=== PATIENT | female | born 1935 | race Caucasian/White ===

== ENCOUNTER 2019-08-01 15:45 | Emergency (ER) | payer MEDICARE, OTHER ==
[~2019-08-01] VITALS: Ht 157.5 cm; Wt 46.0 kg
[2019-08-01 16:29] LABS: BASOPHILS % (AUTO) 0.4 % (0-1); EOSINOPHILS # (AUTO) 0.4 X10'3 (0-0.9); EOSINOPHILS % (AUTO) 5.2 % (0-6); HEMATOCRIT 31.8 % (35.0-45.0); HEMOGLOBIN 11.1 g/dl (12.0-16.0); LYMPHOCYTES % (AUTO) 13.2 % (21-51); MEAN CORPUSCULAR HEMOGLOBIN 32.5 PG (27.0-31.0); MEAN CORPUSCULAR HGB CONC 34.9 g/dL (33.0-36.5); MEAN PLATELET VOLUME 7.2 FL (7.4-10.4); MONOCYTES # (AUTO) 0.8 X10'3 (0-0.9); MONOCYTES % (AUTO) 10.8 % (2-12); NEUTROPHILS # (AUTO) 5.5 X10'3 (1.8-7.7); NEUTROPHILS % (AUTO) 70.4 % (42-75); PLATELET COUNT 302 X10'3 (140-440); RED BLOOD COUNT 3.42 X10'6 (4.20-5.60); RED CELL DISTRIBUTION WIDTH 13.4 % (11.5-14.5); WHITE BLOOD COUNT 7.8 X10'3 (4.5-11.0)
[2019-08-01 16:56] LABS: ALANINE AMINOTRANSFERASE 21 U/L (12-78); ALBUMIN 3.2 G/DL (3.4-5.0); ALBUMIN/GLOBULIN RATIO 0.9 (1.1-1.5); ALKALINE PHOSPHATASE 39 IU/L (46-116); ANION GAP 5 (8-16); ASPARTATE AMINO TRANSFERASE 21 U/L (10-37); BILIRUBIN,TOTAL 0.3 MG/DL (0.1-1.0); BLOOD UREA NITROGEN 16 MG/DL (7-18); BUN/CREATININE RATIO 14.8 (6.6-38.0); CALCIUM 8.6 MG/DL (8.5-10.1); CHLORIDE 92 MMOL/L (99-107); CREATININE 1.08 MG/DL (0.40-0.90); GLUCOSE 103 MG/DL (70-104); POTASSIUM 4.7 MMOL/L (3.5-5.1); SODIUM 127 MMOL/L (135-145); TOTAL PROTEIN 6.8 G/DL (6.4-8.2); eGFR 49 ML/MIN
[2019-08-01] MEDS ORDERED: ipratropium/albuterol 3ml nebule NEB SCH (17:10)
[2019-08-01] MEDS ORDERED: ipratropium/albuterol 3ml nebule NEB ONE (17:10)
[2019-08-01] MEDS ORDERED: predniSONE 20 mg tablet PO ONE (17:10)
--- NOTE | 2019-08-01 17:11 | NUR ---
pt was visiting over in [place] on the Jul and not feeling good day she was leaving. had flu symptoms, sore throat, cough, sob and just not feeling well. denies abdomen or cp pain.
[2019-08-01] MEDS ORDERED: normal saline 1000ML IV soln IVB ONE (17:30)
[2019-08-01] MEDS ORDERED: ipratropium/albuterol 3ml nebule NEB PRN (17:30)
[2019-08-01 17:45] VITALS: BP 162/81
[2019-08-01] MEDS ORDERED: PRED20TA PO (18:26)
[2019-08-01] MEDS ORDERED: AZIT-63 PO (18:26)
== END 2019-08-01 18:36 | disposition home or self-care (01) ==
LOC: ER 15:46
DX: J44.1 Chronic obstructive pulmonary disease with (acute) exacerbation (principal); E87.1 Hypo-osmolality and hyponatremia; R11.10 Vomiting, unspecified; E78.00 Pure hypercholesterolemia, unspecified; J44.9 Chronic obstructive pulmonary disease, unspecified; Z90.49 Acquired absence of other specified parts of digestive tract; Z98.890 Other specified postprocedural states; Z87.891 Personal history of nicotine dependence; Z79.2 Long term (current) use of antibiotics; Z79.899 Other long term (current) drug therapy
CPT/HCPCS: 36415; 71046; 80053; 83605; 85025; 87040; 93005; 94640; 94760; 96360; 99284; J7030; J7512

== ENCOUNTER 2019-09-14 12:37 | Emergency (ER) | payer MEDICARE, OTHER ==
[~2019-09-14] VITALS: Ht 157.5 cm; Wt 46.0 kg
[2019-09-14 13:37] LABS: BASOPHILS % (AUTO) 0.7 % (0-1); EOSINOPHILS # (AUTO) 0.2 X10'3 (0-0.9); EOSINOPHILS % (AUTO) 4.2 % (0-6); HEMATOCRIT 30.5 % (35.0-45.0); HEMOGLOBIN 10.5 g/dl (12.0-16.0); LYMPHOCYTES # (AUTO) 0.9 X10'3 (1.1-4.8); LYMPHOCYTES % (AUTO) 20.5 % (21-51); MEAN CORPUSCULAR HGB CONC 34.5 g/dL (33.0-36.5); MEAN CORPUSCULAR VOLUME 95.8 FL (78-98); MEAN PLATELET VOLUME 6.4 FL (7.4-10.4); MONOCYTES # (AUTO) 0.3 X10'3 (0-0.9); MONOCYTES % (AUTO) 6.9 % (2-12); NEUTROPHILS # (AUTO) 2.9 X10'3 (1.8-7.7); NEUTROPHILS % (AUTO) 67.7 % (42-75); PLATELET COUNT 247 X10'3 (140-440); RED BLOOD COUNT 3.18 X10'6 (4.20-5.60); RED CELL DISTRIBUTION WIDTH 14.9 % (11.5-14.5); WHITE BLOOD COUNT 4.3 X10'3 (4.5-11.0)
[2019-09-14 13:48] LABS: ALANINE AMINOTRANSFERASE 41 U/L (12-78); ALBUMIN 3.4 G/DL (3.4-5.0); ALBUMIN/GLOBULIN RATIO 1.1 (1.1-1.5); ALKALINE PHOSPHATASE 34 IU/L (46-116); ANION GAP 7 (8-16); ASPARTATE AMINO TRANSFERASE 32 U/L (10-37); BILIRUBIN,TOTAL 0.5 MG/DL (0.1-1.0); BLOOD UREA NITROGEN 19 MG/DL (7-18); CALCIUM 8.7 MG/DL (8.5-10.1); CHLORIDE 96 MMOL/L (99-107); CREATININE 1.12 MG/DL (0.40-0.90); GLUCOSE 93 MG/DL (70-104); POTASSIUM 4.5 MMOL/L (3.5-5.1); SODIUM 129 MMOL/L (135-145); TOTAL CARBON DIOXIDE 26.3 MMOL/L (24-32); TOTAL PROTEIN 6.5 G/DL (6.4-8.2); eGFR 47 ML/MIN
[2019-09-14] MEDS ORDERED: labetalol 100mg tablet PO STA (16:26)
[2019-09-14 16:42] VITALS: BP 171/104
== END 2019-09-14 17:43 | disposition home or self-care (01) ==
LOC: ER 12:37
DX: R25.1 Tremor, unspecified (principal); R42 Dizziness and giddiness; R05 Cough; E78.00 Pure hypercholesterolemia, unspecified; J44.9 Chronic obstructive pulmonary disease, unspecified; Z90.49 Acquired absence of other specified parts of digestive tract; Z98.890 Other specified postprocedural states
CPT/HCPCS: 36415; 71046; 80053; 84484; 85025; 85610; 93005; 99284

== ENCOUNTER 2019-10-16 07:19 | Emergency (ER) | payer MEDICARE, OTHER ==
[~2019-10-16] VITALS: Ht 157.5 cm; Wt 46.0 kg
[2019-10-16] MEDS ORDERED: normal saline 1000ML IV soln IVB ONE (08:10)
[2019-10-16] MEDS ORDERED: ipratropium/albuterol 3ml nebule NEB ONE (08:10)
[2019-10-16] MEDS ORDERED: methylPREDNISolone sod succ 125mg/2ml vial IV ONE (08:10)
[2019-10-16 08:25] LABS: BASOPHILS % (AUTO) 0.1 % (0-1); EOSINOPHILS # (AUTO) 0.1 X10'3 (0-0.9); EOSINOPHILS % (AUTO) 1.4 % (0-6); HEMOGLOBIN 9.3 g/dl (12.0-16.0); LYMPHOCYTES % (AUTO) 16.9 % (21-51); MEAN CORPUSCULAR HEMOGLOBIN 34.7 PG (27.0-31.0); MEAN CORPUSCULAR HGB CONC 34.5 g/dL (33.0-36.5); MEAN CORPUSCULAR VOLUME 100.7 FL (78-98); MEAN PLATELET VOLUME 6.8 FL (7.4-10.4); MONOCYTES # (AUTO) 0.8 X10'3 (0-0.9); NEUTROPHILS # (AUTO) 3.9 X10'3 (1.8-7.7); NEUTROPHILS % (AUTO) 67.6 % (42-75); PLATELET COUNT 230 X10'3 (140-440); RED BLOOD COUNT 2.68 X10'6 (4.20-5.60); RED CELL DISTRIBUTION WIDTH 21.4 % (11.5-14.5); WHITE BLOOD COUNT 5.7 X10'3 (4.5-11.0)
[2019-10-16 08:40] LABS: ALANINE AMINOTRANSFERASE 92 U/L (12-78); ALBUMIN/GLOBULIN RATIO 1.1 (1.1-1.5); ALKALINE PHOSPHATASE 24 IU/L (46-116); ANION GAP 4 (8-16); ASPARTATE AMINO TRANSFERASE 39 U/L (10-37); BILIRUBIN,TOTAL 0.4 MG/DL (0.1-1.0); BLOOD UREA NITROGEN 20 MG/DL (7-18); BUN/CREATININE RATIO 15.6 (6.6-38.0); CALCIUM 8.9 MG/DL (8.5-10.1); CHLORIDE 96 MMOL/L (99-107); CREATININE 1.28 MG/DL (0.40-0.90); GLUCOSE 101 MG/DL (70-104); POTASSIUM 4.6 MMOL/L (3.5-5.1); SODIUM 131 MMOL/L (135-145); TOTAL CARBON DIOXIDE 31.3 MMOL/L (24-32); TOTAL PROTEIN 5.8 G/DL (6.4-8.2); eGFR 40 ML/MIN
[2019-10-16 08:48] LABS: ANISOCYTOSIS 3+; PLATELET ESTIMATE NORMAL; SCHISTOCYTES FEW
--- NOTE | 2019-10-16 08:50 | NUR ---
TROAT SWAB COLLECTED
[2019-10-16] MEDS ORDERED: LIDO20SO16 PO (09:21)
[2019-10-16] MEDS ORDERED: CEPH250T PO (09:21)
[2019-10-16] MEDS ORDERED: PRED20TA PO (09:21)
[2019-10-16] MEDS ORDERED: GUAI120015 PO (09:21)
[2019-10-16 10:09] VITALS: BP 114/61
== END 2019-10-16 10:11 | disposition home or self-care (01) ==
LOC: ER 07:20
DX: J44.1 Chronic obstructive pulmonary disease with (acute) exacerbation (principal); J40 Bronchitis, not specified as acute or chronic; E86.0 Dehydration; E78.00 Pure hypercholesterolemia, unspecified; Z90.49 Acquired absence of other specified parts of digestive tract; Z98.890 Other specified postprocedural states; Z87.891 Personal history of nicotine dependence
CPT/HCPCS: 36415; 71045; 80053; 83880; 84484; 85025; 87081; 87880; 93005; 94640; 96361; 96374; 99284; J2930; J7030

== ENCOUNTER 2020-03-05 10:52 | Inpatient (IN) | payer MEDICARE, OTHER ==
[~2020-03-05] VITALS: Ht 157.5 cm; Wt 45.0 kg
[~2020-03-05 10:52] MED LIST: GUAI120015 PO; LIDO20SO16 PO
[2020-03-05] MEDS ORDERED: CefTRIAXone 2gm/D5W 50ml 50 ML IV ONE (11:10)
[2020-03-05] MEDS ORDERED: normal saline 1000ML IV soln IVB ONE (11:15)
[2020-03-05 11:31] LABS: HEMOGLOBIN 10.3 g/dl (12.0-16.0); LYMPHOCYTES # (AUTO) 0.5 X10'3 (1.1-4.8); LYMPHOCYTES % (AUTO) 1.8 % (21-51); MEAN CORPUSCULAR HGB CONC 33.3 g/dL (33.0-36.5); MEAN PLATELET VOLUME 8.7 FL (7.4-10.4); RED CELL DISTRIBUTION WIDTH 19.9 % (11.5-14.5)
[2020-03-05 11:33] LABS: BASOPHILS # (AUTO) 0.1 X10'3 (0-0.2); BASOPHILS % (AUTO) 0.2 % (0-1); EOSINOPHILS % (AUTO) 0.1 % (0-6); HEMATOCRIT 30.9 % (35.0-45.0); MEAN CORPUSCULAR HEMOGLOBIN 38.3 PG (27.0-31.0); MEAN CORPUSCULAR VOLUME 115.2 FL (78-98); MONOCYTES # (AUTO) 1.7 X10'3 (0-0.9); MONOCYTES % (AUTO) 5.6 % (2-12); NEUTROPHILS # (AUTO) 27.7 X10'3 (1.8-7.7); NEUTROPHILS % (AUTO) 92.3 % (42-75); PLATELET COUNT 541 X10'3 (140-440); RED BLOOD COUNT 2.68 X10'6 (4.20-5.60)
[2020-03-05] MEDS ORDERED: amiodarone 50MG/ML inj IV ONE (11:40)
[2020-03-05 11:43] LABS: PARTIAL THROMBOPLASTIN TIME 27 SECONDS (22-32)
[2020-03-05] MEDS ORDERED: amiodarone 150mg/dext, iso-os 100 ML IV ONE (11:45)
[2020-03-05 11:47] LABS: TOTAL CELLS COUNTED 100
[2020-03-05 11:48] LABS: ANISOCYTOSIS 2+; PLATELET ESTIMATE INCREASED; TOXIC GRANULATION 2+
[2020-03-05 11:49] LABS: ALANINE AMINOTRANSFERASE 24 U/L (12-78); ALBUMIN 2.1 G/DL (3.4-5.0); ALBUMIN/GLOBULIN RATIO 0.6 (1.1-1.5); ALKALINE PHOSPHATASE 55 IU/L (46-116); ANION GAP 10 (8-16); ASPARTATE AMINO TRANSFERASE 22 U/L (10-37); BILIRUBIN,TOTAL 0.3 MG/DL (0.1-1.0); BLOOD UREA NITROGEN 88 MG/DL (7-18); BUN/CREATININE RATIO 38.3 (6.6-38.0); CALCIUM 7.7 MG/DL (8.5-10.1); CHLORIDE 101 MMOL/L (99-107); GLUCOSE 136 MG/DL (70-104); LARGE PLATELETS FEW; POTASSIUM 4.6 MMOL/L (3.5-5.1); SODIUM 130 MMOL/L (135-145); TOTAL CARBON DIOXIDE 19.4 MMOL/L (24-32); TOTAL PROTEIN 5.4 G/DL (6.4-8.2); eGFR 20 ML/MIN
[2020-03-05 11:55] LABS: MAGNESIUM 2.3 MG/DL (1.5-2.4)
[2020-03-05 12:04] LABS: CLARITY,URINE CLEAR (Clear); COLOR,URINE YELLOW (Yellow); GLUCOSE, URINE NEGATIVE (Neg); KETONES,URINE NEGATIVE (Neg); LEUKOCYTE ESTERASE ,URINE NEGATIVE (Neg); NITRITES, URINE NEGATIVE (Neg); OCCULT BLOOD,URINE NEGATIVE (Neg); PH,URINE 5.5 (4.8-8.0); PROTEIN,URINE NEGATIVE (Neg); UROBILINOGEN,URINE 0.2 E.U/dL (0.2-1.0)
[2020-03-05 12:05] LABS: UA COLLECTION TYPE CLN CATCH MIDSTREAM
[2020-03-05 12:07] LABS: C-REACTIVE PROTEIN 15.32 MG/DL (0.0-0.5); LACTATE DEHYDROGENASE 335 U/L (81-234)
[2020-03-05 12:10] LABS: D-DIMER 5.93 MG/L FEU (0-0.50)
[2020-03-05] MEDS: amiodarone/D5 360MG/200ML BAG 200 ML IV SCH ×3 (12:11→23:48)
[2020-03-05] MEDS ORDERED: HYDR-3964 PO (12:56)
[2020-03-05] MEDS ORDERED: LIDO20SO24 PO (12:56)
[2020-03-05] MEDS ORDERED: PRED10TA PO (12:56)
[2020-03-05] MEDS ORDERED: ATOR10TA70 PO (12:56)
[2020-03-05] MEDS ORDERED: LOSA50TA64 PO (13:01)
[2020-03-05] MEDS ORDERED: TRAZ-251 PO (13:01)
[2020-03-05] MEDS ORDERED: LISI-600 PO (13:01)
[2020-03-05] MEDS ORDERED: FOLIC ACID 1MG PO (13:01)
[2020-03-05] MEDS ORDERED: HYDR200T84 PO (13:01)
[2020-03-05] MEDS ORDERED: METH2.5T55 PO (13:01)
[2020-03-05] MEDS ORDERED: morphine 2 MG/ML inj. syringe IV PRN (13:05)
[2020-03-05] MEDS ORDERED: potassium CL 10mEq/100ml bag 100 ML IV PRN ×2 (13:05)
[2020-03-05] MEDS ORDERED: ondansetron/PF 4mg/2ml inj IV PRN (13:05)
[2020-03-05] MEDS ORDERED: potassium Cl 20 mEq SR tablet PO PRN ×2 (13:05)
[2020-03-05] MEDS ORDERED: magnesium 2GM in 50ml NS 50 ML IV PRN (13:05)
[2020-03-05] MEDS ORDERED: magnesium Cl slow-release 64mg tablet PO PRN (13:05)
[2020-03-05] MEDS ORDERED: acetaminophen 325mg tablet PO PRN (13:05)
[2020-03-05] MEDS ORDERED: magnesium 4gm in 100ml NS 100 ML IV PRN (13:05)
[2020-03-05] MEDS ORDERED: azithromycin/NS 500mg/250ml 250 ML IV ONE (13:10)
[2020-03-05] MEDS ORDERED: ipratropium/albuterol 3ml nebule NEB PRN (14:10)
--- NOTE | 2020-03-05 14:10 | NUR ---
Patient admitted to PCU 3465P. Patient transferred from ED [facility] to bed. Oriented to room and call light use, explained to patient multiple times she is in a hospital. Patient is able to answer name and but does not know why she is here, where she is, or the month or date. Attempted to explain to patient plan of care and illness, as well as reinforce she is in hospital. Amiodarone gtt infusing at 33mL/hr. Patient placed on bedside monitor. VS taken at this time. Will continue to monitor.
[2020-03-05 15:00] VITALS: BP 103/46
[2020-03-05] MEDS: ipratropium/albuterol 3ml nebule NEB SCH ×3 (15:05→22:59)
[2020-03-05] MEDS: normal saline 1000ml 1,000 ML IV SCH (15:07)
[2020-03-05] MEDS: CefTRIAXone/D5W-Rocephin 1gm 50 ML IV SCH (15:08)
--- NOTE | 2020-03-05 17:20 | NUR ---
Patient c/o left sided chest pain, is grabbing at the left lateral chest wall. She states that this pain "started when I got here". STAT EKG obtained at this time and read No STEMI by ED MD. VS stable at this time. Hospitalist paged on EKG and chest pain. Will continue to monitor.
--- NOTE | 2020-03-05 17:21 | NUR ---
PAGER ID: [phone] MESSAGE: Alycia sr [phone]. RE Chrissie Nogueira [id number]. Pt having CP, obtaining STAT EKG. Can I run it to you to review? Thanks!
[2020-03-05 18:00] VITALS: BP 102/46
--- NOTE | 2020-03-05 18:00 | NUR ---
Patient in room PCU 3017. I have received report from Alycia MATTHEWS and had the opportunity to ask questions and assume patient care.
--- NOTE | 2020-03-05 18:28 | NUR ---
Problems reprioritized. Patient report given, questions answered & plan of care reviewed with Jessica MATTHEWS.
[2020-03-05 20:00] VITALS: BP_SYST 107; BP_SYST 115; BP_DIAS 38; BP_DIAS 43
[2020-03-05] MEDS: K and/or MAG REPLACEMENT MC SCH (20:00)
[2020-03-05] MEDS: methylPREDNISolone sod succ/PF 40mg inj. IV SCH (20:27)
[2020-03-05 22:00] VITALS: BP 107/38
[2020-03-06] VITALS (13 sets, daily range): BP systolic 95–133; BP diastolic 42–103
[2020-03-06] MEDS: ipratropium/albuterol 3ml nebule NEB SCH ×6 (02:51→23:17)
[2020-03-06] MEDS: amiodarone/D5 360MG/200ML BAG 200 ML IV SCH ×3 (05:37→16:39)
[2020-03-06 06:15] LABS: EOSINOPHILS % (AUTO) 0 % (0-6); HEMOGLOBIN 8.5 g/dl (12.0-16.0); LYMPHOCYTES # (AUTO) 0.4 X10'3 (1.1-4.8); LYMPHOCYTES % (AUTO) 1.2 % (21-51); MONOCYTES # (AUTO) 0.6 X10'3 (0-0.9); MONOCYTES % (AUTO) 1.9 % (2-12)
[2020-03-06 06:18] LABS: BASOPHILS # (AUTO) 0.1 X10'3 (0-0.2); BASOPHILS % (AUTO) 0.2 % (0-1); MEAN CORPUSCULAR HEMOGLOBIN 39.4 PG (27.0-31.0); MEAN CORPUSCULAR HGB CONC 34.1 g/dL (33.0-36.5); MEAN CORPUSCULAR VOLUME 115.5 FL (78-98); MEAN PLATELET VOLUME 8.8 FL (7.4-10.4); NEUTROPHILS # (AUTO) 32.9 X10'3 (1.8-7.7); NEUTROPHILS % (AUTO) 96.7 % (42-75); PLATELET COUNT 427 X10'3 (140-440); RED BLOOD COUNT 2.17 X10'6 (4.20-5.60); RED CELL DISTRIBUTION WIDTH 20.3 % (11.5-14.5)
--- NOTE | 2020-03-06 06:29 | NUR ---
PAGER ID: [phone] MESSAGE: [phone] Lani Nogueira: Critical WBC 34. would you like to order anything? Jessica MATTHEWS [phone]
[2020-03-06 06:31] LABS: ALBUMIN 1.6 G/DL (3.4-5.0); ANION GAP 10 (8-16); BLOOD UREA NITROGEN 63 MG/DL (7-18); CALCIUM 7.2 MG/DL (8.5-10.1); CHLORIDE 107 MMOL/L (99-107); GLUCOSE 223 MG/DL (70-104); MAGNESIUM 2.5 MG/DL (1.5-2.4); POTASSIUM 4.5 MMOL/L (3.5-5.1); SODIUM 134 MMOL/L (135-145); TOTAL CARBON DIOXIDE 16.7 MMOL/L (24-32); eGFR 27 ML/MIN
--- NOTE | 2020-03-06 06:36 | NUR ---
Problems reprioritized. Patient report given, questions answered & plan of care reviewed with Alycia MATTHEWS.
--- NOTE | 2020-03-06 06:49 | NUR ---
Patient in room PCU 3014G. I have received report from Jessica MATTHEWS and had the opportunity to ask questions and assume patient care.
[2020-03-06 06:55] LABS: ANISOCYTOSIS 3+; BURR CELLS 1+; PLATELET ESTIMATE NORMAL; POLYCHROMASIA 1+; TOTAL CELLS COUNTED 100; TOXIC GRANULATION 3+
[2020-03-06] MEDS: aspirin 325mg tablet PO SCH (07:50)
[2020-03-06] MEDS: methylPREDNISolone sod succ/PF 40mg inj. IV SCH ×2 (07:51→19:09)
[2020-03-06] MEDS: CefTRIAXone/D5W-Rocephin 1gm 50 ML IV SCH (07:54)
[2020-03-06] MEDS: K and/or MAG REPLACEMENT MC SCH ×2 (08:00→20:00)
--- NOTE | 2020-03-06 09:00 | NUR ---
Patient converted into afib rate 100-120's.
[2020-03-06] MEDS: azithromycin/NS 500mg/250ml 250 ML IV SCH (09:07)
--- NOTE | 2020-03-06 10:38 | NUR ---
Pt with a low BMI for geriatric age. Current documented wt is pt stated however is stable with documented wt hx of 46 kg taken 10/16/19 with chair scale. Pt confused, A/O x1, and a poor historian with hx dementia. Pt edentulous per admission assessment. Pt would benefit from BSS with ST, recommendation placed. Pt documented with 25% PO intake at dinner yesterday on heart healthy diet, pureed was just added to diet order this morning. Pt with no documented significant decrease in muscle strength or edema. Skin is intact. Will continue to follow closely and monitor need for appropriate nutrition intervention pending BSS. Addendum: 03/06/20 at [address] Amended: Links added.
[2020-03-06] MEDS: normal saline 1000ml 1,000 ML IV SCH (10:42)
--- NOTE | 2020-03-06 10:53 | NUR ---
PAGER ID: [phone] MESSAGE: Alycia sr [phone]. RE Chrissie Nogueira [id number]. Can I order PT eval for patient? Also need orders for O2, requiring 2L to maintain sats. Thanks!
--- NOTE | 2020-03-06 11:02 | NUR ---
PAGER ID: [phone] MESSAGE: Alycia sr [phone]. RE Chrissie GAN [phone]. Pt has positive blood culture: gram negative rods, right arm, aerobic bottle. On Rocephin and Zithromax IV. Thanks!
--- NOTE | 2020-03-06 15:30 | NUR ---
Patient converted into sinus rhythm, rate in the 's. Notified by [employer] at 1600 that patient had converted and has sustained SR since 1529.
--- NOTE | 2020-03-06 18:00 | NUR ---
Patient in room PCU 3017. I have received report from Alycia MATTHEWS and had the opportunity to ask questions and assume patient care.
--- NOTE | 2020-03-06 18:06 | NUR ---
Problems reprioritized. Patient report given, questions answered & plan of care reviewed with Jessica MATTHEWS.
[2020-03-06] MEDS: lactobacillus rhamnosus 10,000 MMU CELLS/CAPSULE PO SCH (20:03)
[2020-03-07] VITALS (14 sets, daily range): BP systolic 102–157; BP diastolic 39–89
[2020-03-07] MEDS: amiodarone/D5 360MG/200ML BAG 200 ML IV SCH ×2 (00:04→06:08)
[2020-03-07] MEDS: ipratropium/albuterol 3ml nebule NEB SCH ×6 (04:10→23:32)
[2020-03-07 06:18] LABS: BASOPHILS # (AUTO) 0.1 X10'3 (0-0.2); HEMOGLOBIN 7.7 g/dl (12.0-16.0)
[2020-03-07 06:23] LABS: BASOPHILS % (AUTO) 0.4 % (0-1); EOSINOPHILS % (AUTO) 0 % (0-6); HEMATOCRIT 23.5 % (35.0-45.0); LYMPHOCYTES # (AUTO) 0.4 X10'3 (1.1-4.8); MEAN CORPUSCULAR HEMOGLOBIN 37.3 PG (27.0-31.0); MEAN CORPUSCULAR HGB CONC 32.8 g/dL (33.0-36.5); MEAN CORPUSCULAR VOLUME 113.9 FL (78-98); MEAN PLATELET VOLUME 8.8 FL (7.4-10.4); MONOCYTES % (AUTO) 2.3 % (2-12); NEUTROPHILS # (AUTO) 39.6 X10'3 (1.8-7.7); NEUTROPHILS % (AUTO) 96.3 % (42-75); PLATELET COUNT 421 X10'3 (140-440); RED BLOOD COUNT 2.07 X10'6 (4.20-5.60); RED CELL DISTRIBUTION WIDTH 20.2 % (11.5-14.5)
--- NOTE | 2020-03-07 06:29 | NUR ---
Problems reprioritized. Patient report given, questions answered & plan of care reviewed with Randi MATTHEWS.
--- NOTE | 2020-03-07 06:35 | NUR ---
Patient in room PCU 3017. I have received report from CASSIE Roland and had the opportunity to ask questions and assume patient care.
[2020-03-07 06:36] LABS: ALBUMIN 1.5 G/DL (3.4-5.0); ANION GAP 11 (8-16); BLOOD UREA NITROGEN 50 MG/DL (7-18); BUN/CREATININE RATIO 33.8 (6.6-38.0); CHLORIDE 109 MMOL/L (99-107); CREATININE 1.48 MG/DL (0.40-0.90); GLUCOSE 194 MG/DL (70-104); MAGNESIUM 2.3 MG/DL (1.5-2.4); POTASSIUM 3.9 MMOL/L (3.5-5.1); SODIUM 138 MMOL/L (135-145); TOTAL CARBON DIOXIDE 17.8 MMOL/L (24-32); eGFR 34 ML/MIN
[2020-03-07 06:38] LABS: WHITE BLOOD COUNT 41.1 X10'3 (4.5-11.0)
--- NOTE | 2020-03-07 06:44 | NUR ---
Paged Wisam PAGER ID: [phone] MESSAGE: [id number]: Critical WBC of 41.1, up from 34.0 yesterday -Randi [phone]
[2020-03-07 06:47] LABS: CALCIUM 7.4 MG/DL (8.5-10.1)
[2020-03-07 07:29] LABS: ANISOCYTOSIS 3+; HYPOCHROMASIA 1+; PLATELET ESTIMATE NORMAL; POLYCHROMASIA FEW; TOTAL CELLS COUNTED 100; TOXIC GRANULATION 3+
[2020-03-07] MEDS: aspirin 325mg tablet PO SCH (07:58)
[2020-03-07] MEDS: lactobacillus rhamnosus 10,000 MMU CELLS/CAPSULE PO SCH ×2 (07:58→19:13)
[2020-03-07] MEDS: methylPREDNISolone sod succ/PF 40mg inj. IV SCH ×2 (07:58→19:13)
[2020-03-07] MEDS: CefTRIAXone/D5W-Rocephin 1gm 50 ML IV SCH (08:00)
[2020-03-07] MEDS: K and/or MAG REPLACEMENT MC SCH ×2 (08:00→20:00)
[2020-03-07] MEDS: azithromycin/NS 500mg/250ml 250 ML IV SCH (08:35)
[2020-03-07] MEDS ORDERED: diltiazem 30mg tablet PO ONE (09:45)
[2020-03-07] MEDS: normal saline 1000ml 1,000 ML IV SCH ×2 (09:45→22:08)
--- NOTE | 2020-03-07 13:45 | NUR ---
New orders from Nepo to discontinue amio gtt.
[2020-03-07] MEDS ORDERED: iohexol 350MG/ML 100ml bottle IV ONE (14:16)
[2020-03-07] MEDS: acetylcysteine 200 MG/ml 4ml vial PO SCH ×2 (14:51→19:14)
[2020-03-07] MEDS: diltiazem 30mg tablet PO SCH ×2 (14:51→19:13)
--- NOTE | 2020-03-07 18:00 | NUR ---
Patient in room PCU 3017. I have received report from Randi MATTHEWS and had the opportunity to ask questions and assume patient care.
--- NOTE | 2020-03-07 18:01 | NUR ---
Problems reprioritized. Patient report given, questions answered & plan of care reviewed with CASSIE Roland.
[2020-03-07 21:54] LABS: HEMATOCRIT 24.7 % (35.0-45.0); HEMOGLOBIN 8.1 g/dl (12.0-16.0); MEAN CORPUSCULAR HEMOGLOBIN 37.6 PG (27.0-31.0); MEAN CORPUSCULAR HGB CONC 32.7 g/dL (33.0-36.5); MEAN CORPUSCULAR VOLUME 114.9 FL (78-98); MEAN PLATELET VOLUME 8.7 FL (7.4-10.4); PLATELET COUNT 425 X10'3 (140-440); RED BLOOD COUNT 2.14 X10'6 (4.20-5.60); RED CELL DISTRIBUTION WIDTH 20.1 % (11.5-14.5)
[2020-03-07 21:58] LABS: WHITE BLOOD COUNT 38.5 X10'3 (4.5-11.0)
[2020-03-08] MEDS: diltiazem 30mg tablet PO SCH ×4 (01:30→19:18)
[2020-03-08] MEDS: ipratropium/albuterol 3ml nebule NEB SCH ×6 (02:58→23:29)
[2020-03-08 06:07] LABS: HEMATOCRIT 24.7 % (35.0-45.0); MEAN PLATELET VOLUME 8.8 FL (7.4-10.4); RED BLOOD COUNT 2.16 X10'6 (4.20-5.60); RED CELL DISTRIBUTION WIDTH 20.4 % (11.5-14.5)
[2020-03-08 06:10] LABS: BASOPHILS % (AUTO) 0 % (0-1); EOSINOPHILS # (AUTO) 0.5 X10'3 (0-0.9); EOSINOPHILS % (AUTO) 1.3 % (0-6); HEMOGLOBIN 8.2 g/dl (12.0-16.0); LYMPHOCYTES # (AUTO) 0.5 X10'3 (1.1-4.8); LYMPHOCYTES % (AUTO) 1.5 % (21-51); MEAN CORPUSCULAR HEMOGLOBIN 37.8 PG (27.0-31.0); MEAN CORPUSCULAR HGB CONC 33.1 g/dL (33.0-36.5); MEAN CORPUSCULAR VOLUME 114.3 FL (78-98); MONOCYTES # (AUTO) 0.5 X10'3 (0-0.9); MONOCYTES % (AUTO) 1.3 % (2-12); NEUTROPHILS # (AUTO) 34.1 X10'3 (1.8-7.7); NEUTROPHILS % (AUTO) 95.9 % (42-75); PLATELET COUNT 404 X10'3 (140-440)
[2020-03-08 06:19] LABS: ALBUMIN 1.5 G/DL (3.4-5.0); ANION GAP 9 (8-16); BLOOD UREA NITROGEN 41 MG/DL (7-18); BUN/CREATININE RATIO 30.1 (6.6-38.0); CALCIUM 7.1 MG/DL (8.5-10.1); CHLORIDE 109 MMOL/L (99-107); CREATININE 1.36 MG/DL (0.40-0.90); GLUCOSE 154 MG/DL (70-104); MAGNESIUM 2.1 MG/DL (1.5-2.4); POTASSIUM 4.1 MMOL/L (3.5-5.1); SODIUM 137 MMOL/L (135-145); TOTAL CARBON DIOXIDE 18.7 MMOL/L (24-32); eGFR 37 ML/MIN
[2020-03-08 06:21] LABS: WHITE BLOOD COUNT 35.6 X10'3 (4.5-11.0)
--- NOTE | 2020-03-08 06:31 | NUR ---
Problems reprioritized. Patient report given, questions answered & plan of care reviewed with Ashleigh MATTHEWS.
--- NOTE | 2020-03-08 06:32 | NUR ---
Patient in room PCU 3017. I have received report from Jessica MATTHEWS and had the opportunity to ask questions and assume patient care.
--- NOTE | 2020-03-08 06:45 | NUR ---
Patient in room PCU 3017. I have received report from Jessica MATTHEWS and had the opportunity to ask questions and assume patient care with Ashleigh MATTHEWS.
[2020-03-08 07:00] VITALS: BP 128/44
[2020-03-08] MEDS: lactobacillus rhamnosus 10,000 MMU CELLS/CAPSULE PO SCH ×2 (07:41→19:18)
[2020-03-08] MEDS: aspirin 325mg tablet PO SCH (07:41)
[2020-03-08] MEDS: methylPREDNISolone sod succ/PF 40mg inj. IV SCH ×2 (07:42→19:18)
[2020-03-08] MEDS: azithromycin/NS 500mg/250ml 250 ML IV SCH (07:42)
[2020-03-08] MEDS: CefTRIAXone/D5W-Rocephin 1gm 50 ML IV SCH (07:42)
[2020-03-08 07:46] LABS: TOTAL CELLS COUNTED 100
[2020-03-08 07:50] LABS: LARGE PLATELETS FEW; PLATELET ESTIMATE NORMAL; POLYCHROMASIA FEW; TOXIC GRANULATION 1+; TOXIC VACUOLATION FEW
[2020-03-08 08:00] VITALS: BP_SYST 117; BP_SYST 132; BP_SYST 136; BP_DIAS 52; BP_DIAS 56; BP_DIAS 63
[2020-03-08] MEDS: K and/or MAG REPLACEMENT MC SCH ×2 (08:00→19:18)
--- NOTE | 2020-03-08 08:00 | NUR ---
MD made aware that the patient has been in and out of a-fib. confirmed with nursing that the patient is on PO Cardizem. No further orders.
[2020-03-08] MEDS: acetylcysteine 200 MG/ml 4ml vial PO SCH ×2 (08:01→19:18)
[2020-03-08 11:00] VITALS: BP 105/40
[2020-03-08] MEDS: normal saline 1000ml 1,000 ML IV SCH ×2 (11:28→16:47)
--- NOTE | 2020-03-08 14:35 | NUR ---
Initial: Pt admit w/ afib RVR, leukocytosis, hyperlipidemia, and forgetful AOX1 hx dementia. Pt PO 25-50% avg pureed/thin/heart healthy meals per CONSULTING PSYCHIATRIST recs r/t lack of teeth. LBM 03/04; RD d/w RN regarding routine bowel care per MD approval. Constipation in addition to ALOC likely impacting PO. Pt MCV 114.3 on admit; RD d/w RN regarding B12/folic supplementation per MD approval. No hx of etoh per EMR. Will continue to monitor for additional protein needs and PO hx. Rec: 1. continue pureed/thin/heart healthy meals per CONSULTING PSYCHIATRIST/MD; encourage PO 2. monitor for ONS needs 3. routine bowel care 4. scaled wt Addendum: 03/08/20 at [address] Amended: Links added.
[2020-03-08 15:00] VITALS: BP 136/57
--- NOTE | 2020-03-08 15:18 | NUR ---
PAGER ID: [phone] MESSAGE: Pt [id number] Lani Nogueira dietary recommending B12 & folic acid supp & bowel care .Lu MATTHEWS ext [phone]
[2020-03-08] MEDS ORDERED: docusate sod 100mg capsule PO PRN (15:25)
[2020-03-08] MEDS: magnesium hydroxide 30ml (MOM) UD suspension PO PRN (16:47)
[2020-03-08 18:00] VITALS: BP 126/50
--- NOTE | 2020-03-08 18:09 | NUR ---
Problems reprioritized. Patient report given, questions answered & plan of care reviewed with Jessica MATTHEWS and with my preceptor Ashleigh MATTHEWS.
[2020-03-08 23:00] VITALS: BP 130/59
[2020-03-09] MEDS: diltiazem 30mg tablet PO SCH ×4 (01:45→20:54)
[2020-03-09 02:00] VITALS: BP 133/54
[2020-03-09] MEDS: ipratropium/albuterol 3ml nebule NEB SCH ×6 (03:00→22:53)
[2020-03-09 05:34] LABS: ALBUMIN 1.7 G/DL (3.4-5.0); ANION GAP 10 (8-16); BLOOD UREA NITROGEN 35 MG/DL (7-18); BUN/CREATININE RATIO 22.9 (6.6-38.0); CALCIUM 7.5 MG/DL (8.5-10.1); CHLORIDE 108 MMOL/L (99-107); CREATININE 1.53 MG/DL (0.40-0.90); GLUCOSE 169 MG/DL (70-104); MAGNESIUM 1.9 MG/DL (1.5-2.4); POTASSIUM 4.3 MMOL/L (3.5-5.1); SODIUM 137 MMOL/L (135-145); eGFR 32 ML/MIN
[2020-03-09 06:00] LABS: BASOPHILS # (AUTO) 0.2 X10'3 (0-0.2); BASOPHILS % (AUTO) 0.4 % (0-1); EOSINOPHILS # (AUTO) 2.1 X10'3 (0-0.9); EOSINOPHILS % (AUTO) 5.3 % (0-6); HEMOGLOBIN 8.5 g/dl (12.0-16.0); LYMPHOCYTES # (AUTO) 0.6 X10'3 (1.1-4.8); LYMPHOCYTES % (AUTO) 1.5 % (21-51); MEAN CORPUSCULAR HEMOGLOBIN 37.8 PG (27.0-31.0); MEAN CORPUSCULAR HGB CONC 32.8 g/dL (33.0-36.5); MEAN CORPUSCULAR VOLUME 115.2 FL (78-98); MEAN PLATELET VOLUME 9.1 FL (7.4-10.4); MONOCYTES # (AUTO) 0.4 X10'3 (0-0.9); NEUTROPHILS # (AUTO) 35.5 X10'3 (1.8-7.7); NEUTROPHILS % (AUTO) 91.8 % (42-75); PLATELET COUNT 463 X10'3 (140-440); RED BLOOD COUNT 2.26 X10'6 (4.20-5.60); RED CELL DISTRIBUTION WIDTH 20.4 % (11.5-14.5)
[2020-03-09 06:05] LABS: WHITE BLOOD COUNT 38.7 X10'3 (4.5-11.0)
--- NOTE | 2020-03-09 06:30 | NUR ---
Problems reprioritized. Patient report given, questions answered & plan of care reviewed with Ashleigh MATTHEWS.
[2020-03-09 06:58] LABS: TOTAL CELLS COUNTED 100
[2020-03-09 06:59] LABS: ANISOCYTOSIS 3+; PLATELET ESTIMATE INCREASED
[2020-03-09 07:00] VITALS: BP 133/67
[2020-03-09 07:00] LABS: MICROCYTOSIS 1+
--- NOTE | 2020-03-09 07:17 | NUR ---
Patient in room PCU 3017. I have received report from Jessica MATTHEWS and had the opportunity to ask questions and assume patient care.
[2020-03-09] MEDS: K and/or MAG REPLACEMENT MC SCH ×2 (08:00→20:00)
[2020-03-09] MEDS: lactobacillus rhamnosus 10,000 MMU CELLS/CAPSULE PO SCH ×2 (08:48→20:55)
[2020-03-09] MEDS: CefTRIAXone/D5W-Rocephin 1gm 50 ML IV SCH (08:48)
[2020-03-09] MEDS: azithromycin/NS 500mg/250ml 250 ML IV SCH (08:48)
[2020-03-09] MEDS: aspirin 325mg tablet PO SCH (08:48)
[2020-03-09] MEDS: folic acid 0.4mg tablet PO SCH (08:49)
[2020-03-09] MEDS: methylPREDNISolone sod succ/PF 40mg inj. IV SCH (08:53)
[2020-03-09] MEDS: acetylcysteine 200 MG/ml 4ml vial PO SCH ×2 (09:02→20:54)
--- NOTE | 2020-03-09 09:23 | NUR ---
PAGER ID: [phone] MESSAGE: [id number] Lani Nogueira - WBC up from yesterday at 38.7, patient converted back into a-fib rate controlled. Oral sores, c/o severe mouth pain. Lu MATTHEWS [phone]
--- NOTE | 2020-03-09 09:33 | NUR ---
PAGER ID: [phone] MESSAGE: [id number] Lani Nogueira limping on right foot, unable to bear weight right lower extremity and edematous. Complains of pain. Lu MATTHEWS ext [phone]
--- NOTE | 2020-03-09 09:36 | NUR ---
Dr. Pascual responded to previous pages with phone call. Stated will come up and examine patient herself before further care. Notified her of the oral sores and pain and notified her of patients afib rhythm. Stated already on cardizem 60mg for her heart so she did not think we should do anything else at this time. Also notified her of the new onset swelling in the lower extremities and the pain in the right ankle/foot. No new orders at this time.
--- NOTE | 2020-03-09 09:37 | NUR ---
PT reported the patient was limping on RLE which was a change from prior day. Patient sitting in chair at time of assessment. Stated, "It hurts a little, im not worried about it." R foot/ankle area edematous, LLE slightly edematous but much less. IVF have been stopped. Assessed for s/sx of stroke. Able to lift legs equally, no sensation impairment. Staff Weapons Officer are equal. Smile is equal. Tongue with no deviation. Neuro assessment remains the same as yesterday. MIRZA. Push is equal of BLE. Doppler confirms pulses. Negative homans signs. Noted old scar to RLE, patient stated she had an old injury but she is also a poor historian and could not elaborate. Waiting for MD to assess.
[2020-03-09 11:00] VITALS: BP 131/60
[2020-03-09] MEDS ORDERED: furosemide 20 MG/2 ML vial IV ONE (11:00)
--- NOTE | 2020-03-09 11:22 | NUR ---
Othostatic vitals not obtained today due to RLE pain when standing. Addendum: 03/09/20 at 1123 by Ashleigh Sung RN Amended: Links added.
--- NOTE | 2020-03-09 11:26 | NUR ---
MD assessed patient. Did not feel the RLE was related to DVT. She stated she suspects its a sprain. Also, had her assess oral mucosa and she ordered lidocaine and nystatin swish and swallow. Will continue to monitor closely.
[2020-03-09] MEDS: ciprofloxacin 250mg tablet PO SCH ×2 (11:35→20:54)
--- NOTE | 2020-03-09 12:15 | NUR ---
PAGER ID: [phone] MESSAGE: [id number] Lani Nogueira called regarding med rec. He was not confused please call nurse to review. X-ray results in. Lu MATTHEWS ext [phone]
--- NOTE | 2020-03-09 12:16 | NUR ---
Spoke with regarding her condition. He stated her confusion is not new. She was not always remembering to take her meds. Reviewed meds. Pt. stopped taking methotrexate because it was calling oral sores. Atorvastatin, lisinopril, losartan, norco, lidocaine viscous and hydrochloroquine were home meds she was taking.MD/Pharmacy made aware.
[2020-03-09] MEDS: nystatin 500,000 unit/5ML UD oral suspension PO SCH ×2 (12:24→20:54)
--- NOTE | 2020-03-09 12:25 | NUR ---
Dr. Pascual notified of medications that patient was taking at home. Dr. Pascual stated she shows the patient is on these meds already but that is not the case. Asked her to review med rec and she requested to call pharmacy. Pharmacy made aware. Pharmacy stated she will F/U with Dr. Pascual.
--- NOTE | 2020-03-09 12:29 | NUR ---
PAGER ID: [phone] MESSAGE: [id number] Lani mckinney was for her rheumatoid arthritis FYI
[2020-03-09] MEDS: LIDOcaine Viscous 15ml cup MM PRN ×2 (14:16→20:55)
--- NOTE | 2020-03-09 14:57 | NUR ---
PAGER ID: [phone] MESSAGE: [id number] Lani Nogueira Chest x-ray results in FYI.
[2020-03-09 15:00] VITALS: BP 117/57
[2020-03-09 18:00] VITALS: BP 128/43
--- NOTE | 2020-03-09 18:00 | NUR ---
Problems reprioritized. Patient report given, questions answered & plan of care reviewed with Ashleigh MATTHEWS.
--- NOTE | 2020-03-09 18:40 | NUR ---
Problems reprioritized. Patient report given, questions answered & plan of care reviewed with Jessica MATTHEWS.
[2020-03-09] MEDS: traZODone 50mg tablet PO SCH (20:54)
[2020-03-09 22:00] VITALS: BP 88/55
[2020-03-10] MEDS: diltiazem 30mg tablet PO SCH ×4 (01:18→19:59)
[2020-03-10 02:00] VITALS: BP 125/47
[2020-03-10] MEDS: ipratropium/albuterol 3ml nebule NEB SCH ×6 (03:00→23:27)
[2020-03-10 05:35] LABS: HEMOGLOBIN 8.1 g/dl (12.0-16.0); MONOCYTES # (AUTO) 0.9 X10'3 (0-0.9)
[2020-03-10 05:37] LABS: BASOPHILS # (AUTO) 0.1 X10'3 (0-0.2); BASOPHILS % (AUTO) 0.3 % (0-1); EOSINOPHILS % (AUTO) 0.1 % (0-6); HEMATOCRIT 24.5 % (35.0-45.0); LYMPHOCYTES # (AUTO) 0.6 X10'3 (1.1-4.8); LYMPHOCYTES % (AUTO) 1.9 % (21-51); MEAN CORPUSCULAR HEMOGLOBIN 37.7 PG (27.0-31.0); MEAN CORPUSCULAR HGB CONC 32.9 g/dL (33.0-36.5); MEAN CORPUSCULAR VOLUME 114.6 FL (78-98); MONOCYTES % (AUTO) 2.8 % (2-12); NEUTROPHILS % (AUTO) 94.9 % (42-75); PLATELET COUNT 361 X10'3 (140-440); RED BLOOD COUNT 2.14 X10'6 (4.20-5.60); RED CELL DISTRIBUTION WIDTH 19.9 % (11.5-14.5)
[2020-03-10 05:42] LABS: ALBUMIN 1.6 G/DL (3.4-5.0); ANION GAP 8 (8-16); BLOOD UREA NITROGEN 30 MG/DL (7-18); BUN/CREATININE RATIO 21.9 (6.6-38.0); CALCIUM 7.3 MG/DL (8.5-10.1); CHLORIDE 106 MMOL/L (99-107); CREATININE 1.37 MG/DL (0.40-0.90); GLUCOSE 162 MG/DL (70-104); MAGNESIUM 1.5 MG/DL (1.5-2.4); POTASSIUM 3.9 MMOL/L (3.5-5.1); SODIUM 135 MMOL/L (135-145); TOTAL CARBON DIOXIDE 21.4 MMOL/L (24-32); eGFR 37 ML/MIN
[2020-03-10 06:11] LABS: WHITE BLOOD COUNT 31.6 X10'3 (4.5-11.0)
--- NOTE | 2020-03-10 06:25 | NUR ---
Problems reprioritized. Patient report given, questions answered & plan of care reviewed with Ashleigh MATTHEWS.
--- NOTE | 2020-03-10 06:28 | NUR ---
Patient in room PCU 3017. I have received report from Jessica MATTHEWS and had the opportunity to ask questions and assume patient care with my preceptor Ashleigh MATTHEWS.
--- NOTE | 2020-03-10 06:43 | NUR ---
Patient in room PCU 3017. I have received report from Jessica MATTHEWS and had the opportunity to ask questions and assume patient care.
[2020-03-10 07:00] VITALS: BP 119/101
[2020-03-10 07:02] LABS: ANISOCYTOSIS 2+; PLATELET ESTIMATE NORMAL; TOTAL CELLS COUNTED 100
[2020-03-10 07:03] LABS: SCHISTOCYTES FEW
[2020-03-10] MEDS: nystatin 500,000 unit/5ML UD oral suspension PO SCH ×3 (07:47→20:00)
[2020-03-10] MEDS: aspirin 325mg tablet PO SCH (07:47)
[2020-03-10] MEDS: losartan 50mg tablet PO SCH (07:48)
[2020-03-10] MEDS: ciprofloxacin 250mg tablet PO SCH ×2 (07:48→19:59)
[2020-03-10] MEDS: folic acid 0.4mg tablet PO SCH (07:48)
[2020-03-10] MEDS: lactobacillus rhamnosus 10,000 MMU CELLS/CAPSULE PO SCH ×2 (07:49→19:59)
[2020-03-10] MEDS: prednisone 10mg tablet PO SCH (07:49)
[2020-03-10] MEDS: lisinopril 20mg tablet PO SCH (07:49)
[2020-03-10] MEDS: atorvastatin 10mg tablet PO SCH (07:49)
[2020-03-10] MEDS: acetylcysteine 200 MG/ml 4ml vial PO SCH (07:50)
[2020-03-10 08:00] VITALS: BP_SYST 104; BP_SYST 107; BP_SYST 108; BP_DIAS 35; BP_DIAS 45; BP_DIAS 49
[2020-03-10] MEDS: K and/or MAG REPLACEMENT MC SCH ×2 (08:00→20:00)
[2020-03-10] MEDS: HYDROcodone/acetaminophen 5mg/325mg tablet PO PRN (09:41)
[2020-03-10 11:00] VITALS: BP 114/45
--- NOTE | 2020-03-10 11:05 | NUR ---
DR. King came saw this patient and reviewed EKG and progression with patient.
[2020-03-10 15:00] VITALS: BP 107/49
--- NOTE | 2020-03-10 18:00 | NUR ---
Problems reprioritized. Patient report given, questions answered & plan of care reviewed with Esther MATTHEWS. Addendum: 03/11/20 at 0243 by Jessica Roberson RN with Ashleigh MATTHEWS. Addendum: 03/11/20 at 0245 by Jessica Roberson RN Patient in room [place] [address]. I have received report from Ashleigh MATTHEWS and had the opportunity to ask questions and assume patient care.
--- NOTE | 2020-03-10 18:16 | NUR ---
Problems reprioritized. Patient report given, questions answered & plan of care reviewed with Jessica MATTHEWS and my preceptor Ashleigh MATTHEWS.
--- NOTE | 2020-03-10 18:24 | NUR ---
Agree with orientee documentation.
[2020-03-10] MEDS: LIDOcaine Viscous 15ml cup MM PRN (20:00)
[2020-03-10] MEDS: traZODone 50mg tablet PO SCH (20:00)
[2020-03-10 22:00] VITALS: BP 140/71
[2020-03-11] MEDS: diltiazem 30mg tablet PO SCH ×3 (02:06→13:42)
[2020-03-11 03:00] VITALS: BP 134/55
[2020-03-11] MEDS: ipratropium/albuterol 3ml nebule NEB SCH ×4 (03:30→15:00)
[2020-03-11 06:00] VITALS: BP 135/57
--- NOTE | 2020-03-11 06:14 | NUR ---
Problems reprioritized. Patient report given, questions answered & plan of care reviewed with Alycia MATTHEWS.
--- NOTE | 2020-03-11 06:40 | NUR ---
Patient in room PCU 3017. I have received report from Jessica MATTHEWS and had the opportunity to ask questions and assume patient care.
--- NOTE | 2020-03-11 06:42 | NUR ---
Patient in room PCU 3017. I have received report from CASSIE Lopez and had the opportunity to ask questions and assume patient care.
[2020-03-11 08:00] VITALS: BP_SYST 105; BP_SYST 130; BP_SYST 134; BP_DIAS 52; BP_DIAS 59; BP_DIAS 85
[2020-03-11] MEDS: K and/or MAG REPLACEMENT MC SCH (08:00)
[2020-03-11] MEDS: lactobacillus rhamnosus 10,000 MMU CELLS/CAPSULE PO SCH (09:55)
[2020-03-11] MEDS: folic acid 0.4mg tablet PO SCH (09:56)
[2020-03-11] MEDS: ciprofloxacin 250mg tablet PO SCH (09:56)
[2020-03-11] MEDS: prednisone 10mg tablet PO SCH (09:57)
[2020-03-11] MEDS: atorvastatin 10mg tablet PO SCH (10:00)
[2020-03-11] MEDS: nystatin 500,000 unit/5ML UD oral suspension PO SCH ×2 (10:01→13:42)
[2020-03-11] MEDS: magnesium hydroxide 30ml (MOM) UD suspension PO PRN (10:01)
--- NOTE | 2020-03-11 10:02 | NUR ---
Reassessment: Patient with pureed diet per speech therapy recommendations; patient is edentulous. PO intake has improved slightly since admission from 25-49% to eating 75-100% on 03/10; average PO intake 50-75%. History of COPD, HTN and dementia. Per ID note patient with sepsis d/t pseudomonas, leukocytosis, RA, oral ulcers, SARMAD, chronic immunosuppression. Mouth ulcers may contribute to pain while eating, pureed diet may help ease pain while eating due smooth texture. Patient does have increased protein needs r/t infection. Last BM 03/09, possibly constipated, has no routine bowel care. Constipation in addition to ALOC likely impacting PO. Milk of magnesia given on 03/08. Recommend routine bowel care for bowel regularity, notified MD. Pt MCV is elevated at 114.6, possibly indicating a vitamin B 12 or folic acid deficiency, discussed with bedside nurse, patient is now receiving cyanocobalamin and folic acid daily. Rec: 1. continue pureed/thin/heart healthy meals per TANK PROCESSOR/MD; encourage PO 2. recommend ensure enlive in view of increased protein needs 3. routine bowel care 4. scaled wt Addendum: 03/11/20 at [address] Amended: Links added.
[2020-03-11] MEDS: losartan 50mg tablet PO SCH (10:03)
[2020-03-11] MEDS: lisinopril 20mg tablet PO SCH (10:12)
[2020-03-11] MEDS: aspirin 325mg tablet PO SCH (10:27)
[2020-03-11 11:00] VITALS: BP 132/71
[2020-03-11] MEDS: HYDROcodone/acetaminophen 5mg/325mg tablet PO PRN (13:07)
[2020-03-11 15:00] VITALS: BP 116/66
--- NOTE | 2020-03-11 15:03 | NUR ---
PT. WAS TO BE DISCHARGED WAS NOT ABLE TO ADMINSTER TREATMENT. Addendum: 03/11/20 at 1503 by Emmanuel Pereira RT Amended: Links added.
--- NOTE | 2020-03-11 15:07 | NUR ---
Patient stable for transfer per MD orders, called report to CASSIE López at [facility]. All belongings were collected and sent with patient. PIV discontinued, cannula intact. Tele monitor discontinued, telegraph office telephone clerk notified. Patient ambulated to wheelchair with 2 person assist, wheeled to [facility], accompanied by caravan personnel.
[2020-03-11] MEDS ORDERED: docusate sod 100mg capsule PO SCH (20:00)
== END 2020-03-11 15:07 | DRG 871 ==
LOC: ER 10:52 → ED HOLD 13:05 → PCU 3S 14:00
PROVIDERS: ADMIT Internal Medicine; ATTEND Internal Medicine
PROC: CB121ZZ Planar Nuclear Medicine Imaging of Lungs and Bronchi using Technetium 99m (Tc-99m) (ICD-10-PCS; principal; 2020-03-07)
PROC: B32T1ZZ Computerized Tomography (CT Scan) of Left Pulmonary Artery using Low Osmolar Contrast (ICD-10-PCS; 2020-03-07)
PROC: B3201ZZ Computerized Tomography (CT Scan) of Thoracic Aorta using Low Osmolar Contrast (ICD-10-PCS; 2020-03-07)
PROC: B32S1ZZ Computerized Tomography (CT Scan) of Right Pulmonary Artery using Low Osmolar Contrast (ICD-10-PCS; 2020-03-07)
DX: A41.52 Sepsis due to Pseudomonas (principal); J18.9 Pneumonia, unspecified organism; N17.9 Acute kidney failure, unspecified; J44.0 Chronic obstructive pulmonary disease with (acute) lower respiratory infection; J96.10 Chronic respiratory failure, unspecified whether with hypoxia or hypercapnia; D89.9 Disorder involving the immune mechanism, unspecified; E78.00 Pure hypercholesterolemia, unspecified; E78.5 Hyperlipidemia, unspecified; I11.0 Hypertensive heart disease with heart failure; Z20.828 Contact with and (suspected) exposure to other viral communicable diseases; I25.10 Atherosclerotic heart disease of native coronary artery without angina pectoris; I48.91 Unspecified atrial fibrillation; D63.8 Anemia in other chronic diseases classified elsewhere; I50.9 Heart failure, unspecified; K12.1 Other forms of stomatitis; F32.9 Major depressive disorder, single episode, unspecified; M06.9 Rheumatoid arthritis, unspecified; Z90.49 Acquired absence of other specified parts of digestive tract; Z79.899 Other long term (current) drug therapy
CPT/HCPCS: 36415; 71045; 71275; 73600; 78580; 80048; 80053; 81003; 83605; 83615; 83735; 83880; 84145; 84484; 85025; 85027; 85379; 85610; 85730; 86140; 87040; 87077; 87081; 87186; 87635; 92508; 92616; 93005; 93306; 94640; 94760; 96365; 97110; 97112; 97116; 97161; 97530; 99291; A9540; G0378; J0456; J0696; J1940; J2920; J7030; J7512; Q9967

== ENCOUNTER 2020-03-18 13:22 | Inpatient (IN) | payer MEDICARE, OTHER ==
[~2020-03-18] VITALS: Ht 157.5 cm; Wt 50.0 kg
[2020-03-18] VITALS (7 sets, daily range): BP systolic 131–156; BP diastolic 38–76
[~2020-03-18 13:22] MED LIST changes: +ATOR10TA70 PO; +FOLIC ACID 1MG PO; -GUAI120015 PO; +HYDR-3964 PO; +HYDR200T84 PO; -LIDO20SO16 PO; +LIDO20SO24 PO; +LISI-600 PO; +LOSA50TA64 PO; +METH2.5T55 PO; +PRED10TA PO; +TRAZ-251 PO
[2020-03-18] MEDS ORDERED: normal saline 1000ml 1,000 ML IV ONE (13:33)
[2020-03-18] MEDS ORDERED: pantoprazole 40 MG vial IV ONE (13:35)
[2020-03-18 13:54] LABS: BASOPHILS # (AUTO) 0.1 X10'3 (0-0.2); BASOPHILS % (AUTO) 0.5 % (0-1); EOSINOPHILS % (AUTO) 0.1 % (0-6); HEMOGLOBIN 7.2 g/dl (12.0-16.0); LYMPHOCYTES # (AUTO) 0.2 X10'3 (1.1-4.8); LYMPHOCYTES % (AUTO) 1.7 % (21-51); MEAN CORPUSCULAR HEMOGLOBIN 37.1 PG (27.0-31.0); MEAN CORPUSCULAR VOLUME 112.5 FL (78-98); MONOCYTES # (AUTO) 0.5 X10'3 (0-0.9); MONOCYTES % (AUTO) 4.7 % (2-12); NEUTROPHILS # (AUTO) 10.2 X10'3 (1.8-7.7); PLATELET COUNT 286 X10'3 (140-440); RED BLOOD COUNT 1.94 X10'6 (4.20-5.60); RED CELL DISTRIBUTION WIDTH 18.1 % (11.5-14.5)
[2020-03-18 14:06] LABS: HEMATOCRIT 21.9 % (35.0-45.0)
[2020-03-18 14:07] LABS: PARTIAL THROMBOPLASTIN TIME 25 SECONDS (22-32)
[2020-03-18 14:09] LABS: ALANINE AMINOTRANSFERASE 26 U/L (12-78); ALBUMIN 1.6 G/DL (3.4-5.0); ALBUMIN/GLOBULIN RATIO 0.5 (1.1-1.5); ALKALINE PHOSPHATASE 40 IU/L (46-116); AMYLASE 85 U/L (25-115); ANION GAP 3 (8-16); ASPARTATE AMINO TRANSFERASE 22 U/L (10-37); BILIRUBIN,TOTAL 0.4 MG/DL (0.1-1.0); BLOOD UREA NITROGEN 15 MG/DL (7-18); BUN/CREATININE RATIO 11.5 (6.6-38.0); CALCIUM 7.8 MG/DL (8.5-10.1); CHLORIDE 97 MMOL/L (99-107); CREATININE 1.31 MG/DL (0.40-0.90); ETHANOL < 0.010 GM/DL (0.0-0.010); GLUCOSE 136 MG/DL (70-104); LIPASE 185 U/L (73-393); MAGNESIUM 1.5 MG/DL (1.5-2.4); POTASSIUM 4.4 MMOL/L (3.5-5.1); SODIUM 132 MMOL/L (135-145); TOTAL CARBON DIOXIDE 32.5 MMOL/L (24-32); TOTAL PROTEIN 4.8 G/DL (6.4-8.2); eGFR 39 ML/MIN
[2020-03-18] MEDS ORDERED: thiamine inj. 100 MG in normal saline 100ml IV soln 100 ML IV ONE (14:15)
[2020-03-18 14:21] LABS: ANISOCYTOSIS 2+; PLATELET ESTIMATE NORMAL
[2020-03-18 14:23] LABS: ROULEAUX 1+
[2020-03-18] MEDS ORDERED: acetaminophen 325mg tablet PO PRN ×2 (14:55)
[2020-03-18] MEDS ORDERED: ondansetron/PF 4mg/2ml inj IV PRN (14:55)
[2020-03-18] MEDS ORDERED: magnesium hydroxide 30ml (MOM) UD suspension PO PRN (14:55)
[2020-03-18] MEDS ORDERED: morphine 2 MG/ML inj. syringe IV PRN ×2 (14:55)
[2020-03-18] MEDS ORDERED: mag hydrox/Alum hydrox/simeth 30ml oral suspension PO PRN (14:55)
[2020-03-18] MEDS ORDERED: HYDROcodone/acetaminophen 5mg/325mg tablet PO PRN (14:55)
[2020-03-18] MEDS ORDERED: FOLI0.4T14 PO (15:18)
[2020-03-18] MEDS ORDERED: ACYC400T PO (15:19)
[2020-03-18] MEDS ORDERED: LISI-600 PO (15:46)
[2020-03-18 16:02] LABS: CLARITY,URINE CLEAR (Clear); COLOR,URINE YELLOW (Yellow); GLUCOSE, URINE NEGATIVE (Neg); KETONES,URINE NEGATIVE (Neg); LEUKOCYTE ESTERASE ,URINE NEGATIVE (Neg); NITRITES, URINE NEGATIVE (Neg); OCCULT BLOOD,URINE NEGATIVE (Neg); PROTEIN,URINE NEGATIVE (Neg); UROBILINOGEN,URINE 0.2 E.U/dL (0.2-1.0)
[2020-03-18 16:09] LABS: UA COLLECTION TYPE STRAIGHT CATH
[2020-03-18 16:16] LABS: OCCULT BLOOD STOOL NEGATIVE (Neg)
[2020-03-18] MEDS ORDERED: ASPI-1264 PO (16:27)
[2020-03-18] MEDS ORDERED: DOCU100C40 PO (16:27)
[2020-03-18] MEDS ORDERED: CARSR60C PO (16:27)
[2020-03-18] MEDS ORDERED: ATR0.5NEB IH (16:27)
[2020-03-18] MEDS ORDERED: PRED5TAB PO (16:27)
[2020-03-18] MEDS ORDERED: CYAN100T46 PO (16:27)
[2020-03-18] MEDS ORDERED: CIPR-259 PO (16:27)
[2020-03-18] MEDS: normal saline 1000ml 1,000 ML IV SCH ×2 (16:34→17:39)
--- NOTE | 2020-03-18 17:15 | NUR ---
Patient in room [facility] 348. I have received report from Karl MATTHEWS and had the opportunity to ask questions will assume patient care when patient comes to the floor.
--- NOTE | 2020-03-18 17:30 | NUR ---
Patient concerned about her purse cream in color. Patient said it is in the cabinet where she slept. I called and spoke to Maribel at [place] and she states that purse is in patients cabinet in her room at facility. Patient aware. Patient only has one hospital bag with her clothes from coming to the hospital at bedside.
--- NOTE | 2020-03-18 18:08 | NUR ---
PAGER ID: [phone] MESSAGE: [facility] [phone] Re: Jero [id number] I have orders for blood and patient and RN have signed consent but need MD signature please call Awaiting call back
--- NOTE | 2020-03-18 18:10 | NUR ---
Problems reprioritized. Patient report given, questions answered & plan of care reviewed with Leslie MATTHEWS.
--- NOTE | 2020-03-18 18:15 | NUR ---
Patient in room [facility] 348. I have received report from Kassie MATTHEWS and had the opportunity to ask questions and assume patient care.
--- NOTE | 2020-03-18 18:40 | NUR ---
Dr. Verdugo in to see patient. Confirm the presence of Md signed for blood consent. Patient gave inform consent. MD order 1 unit to transfused only. And labs to be check in the morning. Will continue with care.
[2020-03-18] MEDS: ipratropium 0.5 MG/2.5ML nebule IH SCH ×2 (20:00→23:51)
[2020-03-18 20:01] LABS: % IRON SATURATION 10 % (11-46); IRON 17 UG/DL (49-151); TOTAL IRON BINDING CAPACITY 176 UG/DL (259-388)
[2020-03-18 20:15] LABS: FERRITIN 658 NG/ML (8-252)
--- NOTE | 2020-03-18 20:45 | NUR ---
Blood transfusion started. VSS, lungs clear. Patient educated about possible blood transfusion reactions and S/s. States understanding.
[2020-03-18] MEDS: atorvastatin 10mg tablet PO SCH (21:10)
[2020-03-18] MEDS: traZODone 50mg tablet PO SCH (21:10)
[2020-03-18] MEDS: diltiazem 30mg tablet PO SCH (21:10)
[2020-03-18] MEDS: docusate sod 100mg capsule PO SCH (21:10)
[2020-03-18] MEDS: ciprofloxacin 250mg tablet PO SCH (21:10)
--- NOTE | 2020-03-18 23:39 | NUR ---
Stool specimen collected and sent to lab.
--- NOTE | 2020-03-18 23:42 | NUR ---
Patient finished blood transfusion. VSS. Patient noted to have some expiratory wheezes to the left lungs. Will continue to monitor.
[2020-03-18 23:50] LABS: OCCULT BLOOD STOOL NEGATIVE (Neg)
[2020-03-19] VITALS: BP 148/60
[2020-03-19] MEDS: ipratropium 0.5 MG/2.5ML nebule IH SCH ×6 (03:00→23:08)
[2020-03-19] MEDS: normal saline 1000ml 1,000 ML IV SCH ×2 (05:10→14:29)
[2020-03-19 05:18] LABS: BASOPHILS % (AUTO) 0.3 % (0-1); EOSINOPHILS # (AUTO) 0.1 X10'3 (0-0.9); EOSINOPHILS % (AUTO) 0.7 % (0-6); HEMATOCRIT 27.4 % (35.0-45.0); HEMOGLOBIN 9.4 g/dl (12.0-16.0); LYMPHOCYTES # (AUTO) 0.8 X10'3 (1.1-4.8); LYMPHOCYTES % (AUTO) 9.2 % (21-51); MEAN CORPUSCULAR HEMOGLOBIN 35.9 PG (27.0-31.0); MEAN CORPUSCULAR HGB CONC 34.1 g/dL (33.0-36.5); MEAN CORPUSCULAR VOLUME 105.2 FL (78-98); MEAN PLATELET VOLUME 7.9 FL (7.4-10.4); MONOCYTES % (AUTO) 10.5 % (2-12); NEUTROPHILS # (AUTO) 7.2 X10'3 (1.8-7.7); NEUTROPHILS % (AUTO) 79.3 % (42-75); PLATELET COUNT 247 X10'3 (140-440); RED BLOOD COUNT 2.61 X10'6 (4.20-5.60); RED CELL DISTRIBUTION WIDTH 20.6 % (11.5-14.5); WHITE BLOOD COUNT 9.1 X10'3 (4.5-11.0)
[2020-03-19 05:23] LABS: ALBUMIN 1.6 G/DL (3.4-5.0); ANION GAP 3 (8-16); BLOOD UREA NITROGEN 12 MG/DL (7-18); BUN/CREATININE RATIO 11.4 (6.6-38.0); CALCIUM 7.8 MG/DL (8.5-10.1); CHLORIDE 101 MMOL/L (99-107); CREATININE 1.05 MG/DL (0.40-0.90); GLUCOSE 67 MG/DL (70-104); POTASSIUM 3.8 MMOL/L (3.5-5.1); SODIUM 135 MMOL/L (135-145); TOTAL CARBON DIOXIDE 30.6 MMOL/L (24-32); eGFR 50 ML/MIN
--- NOTE | 2020-03-19 06:22 | NUR ---
Problems reprioritized. Patient report given, questions answered & plan of care reviewed with Alycia MATTHEWS.
[2020-03-19 07:00] VITALS: BP_SYST 120; BP_SYST 151; BP_DIAS 45; BP_DIAS 47; BP_DIAS 52
[2020-03-19] MEDS: docusate sod 100mg capsule PO SCH ×2 (08:00→20:00)
[2020-03-19] MEDS: ciprofloxacin 250mg tablet PO SCH ×2 (08:29→20:36)
[2020-03-19] MEDS: lisinopril 20mg tablet PO SCH (08:30)
[2020-03-19] MEDS: prednisone 10mg tablet PO SCH (08:30)
[2020-03-19] MEDS: diltiazem 30mg tablet PO SCH ×4 (08:30→20:37)
[2020-03-19] MEDS ORDERED: normal saline 500ml IV soln 500 ML IV ONE (10:50)
[2020-03-19 11:00] VITALS: BP 118/52
[2020-03-19 12:42] LABS: HEMATOCRIT 31.5 % (35.0-45.0); HEMOGLOBIN 10.6 g/dl (12.0-16.0); MEAN CORPUSCULAR HGB CONC 33.8 g/dL (33.0-36.5); MEAN CORPUSCULAR VOLUME 106.4 FL (78-98); MEAN PLATELET VOLUME 7.8 FL (7.4-10.4); PLATELET COUNT 277 X10'3 (140-440); RED BLOOD COUNT 2.96 X10'6 (4.20-5.60); RED CELL DISTRIBUTION WIDTH 21.9 % (11.5-14.5); WHITE BLOOD COUNT 8.4 X10'3 (4.5-11.0)
[2020-03-19 18:00] VITALS: BP_SYST 104; BP_SYST 111; BP_SYST 112; BP_DIAS 37; BP_DIAS 43; BP_DIAS 50
--- NOTE | 2020-03-19 18:36 | NUR ---
Patient in room [facility] 348. I have received report from Alycia MATTHEWS and had the opportunity to ask questions and assume patient care.
[2020-03-19 20:00] LABS: BASOPHILS # (AUTO) 0.1 X10'3 (0-0.2); BASOPHILS % (AUTO) 0.7 % (0-1); EOSINOPHILS % (AUTO) 0.3 % (0-6); HEMATOCRIT 24.8 % (35.0-45.0); HEMOGLOBIN 8.5 g/dl (12.0-16.0); LYMPHOCYTES # (AUTO) 0.4 X10'3 (1.1-4.8); LYMPHOCYTES % (AUTO) 4.6 % (21-51); MEAN CORPUSCULAR HEMOGLOBIN 36.8 PG (27.0-31.0); MEAN CORPUSCULAR HGB CONC 34.3 g/dL (33.0-36.5); MEAN CORPUSCULAR VOLUME 107.1 FL (78-98); MONOCYTES # (AUTO) 0.8 X10'3 (0-0.9); MONOCYTES % (AUTO) 9.4 % (2-12); NEUTROPHILS # (AUTO) 7.1 X10'3 (1.8-7.7); PLATELET COUNT 239 X10'3 (140-440); RED BLOOD COUNT 2.32 X10'6 (4.20-5.60); RED CELL DISTRIBUTION WIDTH 21.9 % (11.5-14.5); WHITE BLOOD COUNT 8.4 X10'3 (4.5-11.0)
[2020-03-19 20:23] LABS: PLATELET ESTIMATE NORMAL
[2020-03-19 20:25] LABS: ANISOCYTOSIS 1+
[2020-03-19] MEDS: atorvastatin 10mg tablet PO SCH (20:37)
[2020-03-19] MEDS: traZODone 50mg tablet PO SCH (20:37)
[2020-03-20] VITALS: BP 110/52
[2020-03-20] MEDS: ipratropium 0.5 MG/2.5ML nebule IH SCH ×3 (03:46→11:09)
[2020-03-20 05:54] LABS: BASOPHILS % (AUTO) 0.4 % (0-1); EOSINOPHILS # (AUTO) 0.1 X10'3 (0-0.9); EOSINOPHILS % (AUTO) 1.2 % (0-6); HEMATOCRIT 25.5 % (35.0-45.0); HEMOGLOBIN 8.7 g/dl (12.0-16.0); LYMPHOCYTES # (AUTO) 0.7 X10'3 (1.1-4.8); MEAN CORPUSCULAR HEMOGLOBIN 36.4 PG (27.0-31.0); MEAN PLATELET VOLUME 8.1 FL (7.4-10.4); MONOCYTES # (AUTO) 0.8 X10'3 (0-0.9); MONOCYTES % (AUTO) 11.6 % (2-12); NEUTROPHILS # (AUTO) 5.4 X10'3 (1.8-7.7); NEUTROPHILS % (AUTO) 76.8 % (42-75); PLATELET COUNT 249 X10'3 (140-440); RED BLOOD COUNT 2.39 X10'6 (4.20-5.60); RED CELL DISTRIBUTION WIDTH 21.1 % (11.5-14.5)
[2020-03-20 06:06] LABS: ALBUMIN 1.4 G/DL (3.4-5.0); ANION GAP 1 (8-16); BLOOD UREA NITROGEN 10 MG/DL (7-18); BUN/CREATININE RATIO 10.4 (6.6-38.0); CALCIUM 7.3 MG/DL (8.5-10.1); CHLORIDE 105 MMOL/L (99-107); CREATININE 0.96 MG/DL (0.40-0.90); GLUCOSE 68 MG/DL (70-104); POTASSIUM 4.4 MMOL/L (3.5-5.1); SODIUM 136 MMOL/L (135-145); TOTAL CARBON DIOXIDE 30.4 MMOL/L (24-32); eGFR 56 ML/MIN
--- NOTE | 2020-03-20 06:20 | NUR ---
Problems reprioritized. Patient report given, questions answered & plan of care reviewed with Merissa MATTHEWS.
[2020-03-20 06:51] LABS: HYPOCHROMASIA 1+; PLATELET ESTIMATE NORMAL
[2020-03-20 06:52] LABS: ANISOCYTOSIS 3+; POLYCHROMASIA FEW
[2020-03-20] MEDS: diltiazem 30mg tablet PO SCH (08:06)
[2020-03-20] MEDS: prednisone 10mg tablet PO SCH (08:07)
[2020-03-20] MEDS: ciprofloxacin 250mg tablet PO SCH (08:07)
[2020-03-20] MEDS: lisinopril 20mg tablet PO SCH (08:07)
[2020-03-20] MEDS: docusate sod 100mg capsule PO SCH (08:07)
[2020-03-20 08:12] VITALS: BP 146/51
[2020-03-20 08:14] VITALS: BP_SYST 114; BP_SYST 119; BP_SYST 146; BP_DIAS 48; BP_DIAS 51
[2020-03-20 08:16] LABS: BASOPHILS % (AUTO) 0.6 % (0-1); EOSINOPHILS # (AUTO) 0.1 X10'3 (0-0.9); HEMATOCRIT 28.6 % (35.0-45.0); HEMOGLOBIN 9.7 g/dl (12.0-16.0); LYMPHOCYTES # (AUTO) 0.6 X10'3 (1.1-4.8); LYMPHOCYTES % (AUTO) 7.5 % (21-51); MEAN CORPUSCULAR HEMOGLOBIN 35.9 PG (27.0-31.0); MEAN CORPUSCULAR HGB CONC 33.9 g/dL (33.0-36.5); MEAN CORPUSCULAR VOLUME 105.9 FL (78-98); MEAN PLATELET VOLUME 7.5 FL (7.4-10.4); MONOCYTES # (AUTO) 0.8 X10'3 (0-0.9); MONOCYTES % (AUTO) 9.7 % (2-12); NEUTROPHILS # (AUTO) 6.5 X10'3 (1.8-7.7); NEUTROPHILS % (AUTO) 81.2 % (42-75); PLATELET COUNT 244 X10'3 (140-440); RED CELL DISTRIBUTION WIDTH 21.1 % (11.5-14.5)
[2020-03-20 08:48] LABS: PLATELET ESTIMATE NORMAL
[2020-03-20 08:49] LABS: ANISOCYTOSIS 3+; HYPOCHROMASIA 1+; POLYCHROMASIA 1+
--- NOTE | 2020-03-20 13:02 | NUR ---
PT DISCHARGED IN STABLE CONDITION. LEFT FACILITY IN [facility]. ALL BELONGINGS IN HAND. IV DC CANULA INTACT. PT TRANSFERRED TO [facility], REPORT CALLED TO [facility]. Addendum: 03/20/20 at 1304 by Aury Caldera RN Amended: Links added.
== END 2020-03-20 13:02 | DRG 811 ==
LOC: ER 13:23 → ED HOLD 14:51 → SUR 3N 17:30
PROVIDERS: ADMIT Internal Medicine; ATTEND Internal Medicine
PROC: 30233N1 Transfusion of Nonautologous Red Blood Cells into Peripheral Vein, Percutaneous Approach (ICD-10-PCS; principal; 2020-03-18)
DX: D50.9 Iron deficiency anemia, unspecified (principal); E43 Unspecified severe protein-calorie malnutrition; N17.9 Acute kidney failure, unspecified; E78.00 Pure hypercholesterolemia, unspecified; E78.5 Hyperlipidemia, unspecified; F17.210 Nicotine dependence, cigarettes, uncomplicated; I10 Essential (primary) hypertension; E86.0 Dehydration; G47.00 Insomnia, unspecified; I25.10 Atherosclerotic heart disease of native coronary artery without angina pectoris; I48.91 Unspecified atrial fibrillation; J44.9 Chronic obstructive pulmonary disease, unspecified; Z79.899 Other long term (current) drug therapy; Z87.01 Personal history of pneumonia (recurrent); Z90.49 Acquired absence of other specified parts of digestive tract; Z68.20 Body mass index [BMI] 20.0-20.9, adult; Z79.82 Long term (current) use of aspirin
CPT/HCPCS: 36415; 36430; 71045; 80048; 80053; 80320; 81003; 82150; 82272; 82728; 83540; 83550; 83690; 83735; 83880; 84484; 85025; 85027; 85610; 85730; 86885; 86900; 86901; 86920; 87081; 93005; 94640; 94760; 97110; 97112; 97116; 97161; 97530; 99291; C9113; G0378; J3411; J7030; J7040; J7512; P9016

== ENCOUNTER 2021-06-11 15:13 | Emergency (ER) | payer MEDICARE, OTHER ==
[~2021-06-11] VITALS: Ht 157.5 cm; Wt 47.3 kg
[~2021-06-11 15:13] MED LIST changes: +ASPI-1264 PO; +ATR0.5NEB IH; +CARSR60C PO; +CIPR-259 PO; +CYAN100T47 PO; +DOCU100C40 PO; -FOLIC ACID 1MG PO; -HYDR-3964 PO; -HYDR200T84 PO; -LIDO20SO24 PO; -LISI-600 PO; +LISI20TA28 PO; -METH2.5T55 PO; -PRED10TA PO; +PRED5TAB PO
[2021-06-11 15:46] VITALS: BP 170/76
[2021-06-11 16:29] LABS: BASOPHILS # (AUTO) 0.1 X10'3 (0-0.2); BASOPHILS % (AUTO) 1.4 % (0-1); EOSINOPHILS # (AUTO) 0.3 X10'3 (0-0.9); EOSINOPHILS % (AUTO) 5.5 % (0-6); HEMATOCRIT 31.7 % (35.0-45.0); HEMOGLOBIN 10.9 g/dl (12.0-16.0); LYMPHOCYTES # (AUTO) 1.5 X10'3 (1.1-4.8); LYMPHOCYTES % (AUTO) 25.7 % (21-51); MEAN CORPUSCULAR HEMOGLOBIN 34.8 PG (27.0-31.0); MEAN CORPUSCULAR HGB CONC 34.4 g/dL (33.0-36.5); MEAN CORPUSCULAR VOLUME 101.2 FL (78-98); MEAN PLATELET VOLUME 7.9 FL (7.4-10.4); MONOCYTES # (AUTO) 0.4 X10'3 (0-0.9); MONOCYTES % (AUTO) 7.1 % (2-12); NEUTROPHILS # (AUTO) 3.4 X10'3 (1.8-7.7); NEUTROPHILS % (AUTO) 60.3 % (42-75); PLATELET COUNT 241 X10'3 (140-440); RED BLOOD COUNT 3.13 X10'6 (4.20-5.60); WHITE BLOOD COUNT 5.7 X10'3 (4.5-11.0)
[2021-06-11 16:45] LABS: ALANINE AMINOTRANSFERASE 25 U/L (12-78); ALBUMIN 3.4 G/DL (3.4-5.0); ALBUMIN/GLOBULIN RATIO 1.2 (1.1-1.5); ALKALINE PHOSPHATASE 60 IU/L (46-116); ANION GAP 6 (8-16); ASPARTATE AMINO TRANSFERASE 23 U/L (10-37); BILIRUBIN,TOTAL 0.6 MG/DL (0.1-1.0); BLOOD UREA NITROGEN 19 MG/DL (7-18); BUN/CREATININE RATIO 13.9 (6.6-38.0); CALCIUM 8.4 MG/DL (8.5-10.1); CHLORIDE 100 MMOL/L (99-107); CREATININE 1.37 MG/DL (0.40-0.90); GLUCOSE 110 MG/DL (70-104); POTASSIUM 4.5 MMOL/L (3.5-5.1); SODIUM 135 MMOL/L (135-145); TOTAL CARBON DIOXIDE 28.9 MMOL/L (24-32); TOTAL PROTEIN 6.3 G/DL (6.4-8.2); eGFR 37 ML/MIN
== END 2021-06-11 17:28 | disposition left against medical advice (07) ==
LOC: ER 15:13
DX: R42 Dizziness and giddiness (principal); Z53.21 Procedure and treatment not carried out due to patient leaving prior to being seen by health care provider
CPT/HCPCS: 36415; 71045; 80053; 83880; 84484; 85025; 93005; 99285

== ENCOUNTER 2021-08-17 09:02 | Emergency (ER) | payer MEDICARE, OTHER ==
[~2021-08-17] VITALS: Ht 157.5 cm; Wt 45.0 kg
[2021-08-17 10:22] VITALS: BP 167/70
[2021-08-17] MEDS ORDERED: acetaminophen 325mg tablet PO STA (10:41)
[2021-08-17 11:09] LABS: BASOPHILS % (AUTO) 0.6 % (0-1); EOSINOPHILS # (AUTO) 0.8 X10'3 (0-0.9); EOSINOPHILS % (AUTO) 10.2 % (0-6); HEMATOCRIT 34.4 % (35.0-45.0); HEMOGLOBIN 11.5 g/dl (12.0-16.0); LYMPHOCYTES # (AUTO) 0.5 X10'3 (1.1-4.8); LYMPHOCYTES % (AUTO) 6.4 % (21-51); MEAN CORPUSCULAR HGB CONC 33.5 g/dL (33.0-36.5); MEAN CORPUSCULAR VOLUME 104.6 FL (78-98); MEAN PLATELET VOLUME 7.9 FL (7.4-10.4); MONOCYTES % (AUTO) 12.9 % (2-12); NEUTROPHILS # (AUTO) 5.2 X10'3 (1.8-7.7); NEUTROPHILS % (AUTO) 69.9 % (42-75); PLATELET COUNT 297 X10'3 (140-440); RED BLOOD COUNT 3.29 X10'6 (4.20-5.60); RED CELL DISTRIBUTION WIDTH 17.9 % (11.5-14.5); WHITE BLOOD COUNT 7.5 X10'3 (4.5-11.0)
[2021-08-17 11:26] LABS: ALANINE AMINOTRANSFERASE 29 U/L (12-78); ALBUMIN/GLOBULIN RATIO 0.8 (1.1-1.5); ALKALINE PHOSPHATASE 48 IU/L (46-116); ANION GAP 9 (8-16); ASPARTATE AMINO TRANSFERASE 27 U/L (10-37); BILIRUBIN,TOTAL 0.7 MG/DL (0.1-1.0); BLOOD UREA NITROGEN 17 MG/DL (7-18); BUN/CREATININE RATIO 12.1 (6.6-38.0); CALCIUM 8.7 MG/DL (8.5-10.1); CHLORIDE 92 MMOL/L (99-107); CREATININE 1.41 MG/DL (0.40-0.90); GLUCOSE 108 MG/DL (70-104); LIPASE 129 U/L (73-393); POTASSIUM 4.3 MMOL/L (3.5-5.1); SODIUM 128 MMOL/L (135-145); TOTAL CARBON DIOXIDE 27.5 MMOL/L (24-32); eGFR 36 ML/MIN
[2021-08-17] MEDS ORDERED: normal saline 1000ml 1,000 ML IV ONE (12:05)
[2021-08-17 12:11] LABS: CLARITY,URINE CLEAR (Clear); COLOR,URINE YELLOW (Yellow); GLUCOSE, URINE NEGATIVE (Neg); KETONES,URINE NEGATIVE (Neg); LEUKOCYTE ESTERASE ,URINE NEGATIVE (Neg); NITRITES, URINE NEGATIVE (Neg); OCCULT BLOOD,URINE NEGATIVE (Neg); PROTEIN,URINE NEGATIVE (Neg); UA COLLECTION TYPE CLN CATCH MIDSTREAM; UROBILINOGEN,URINE 0.2 E.U/dL (0.2-1.0)
--- NOTE | 2021-08-18 08:11 | NUR ---
Due to positive blood, Dr. kate request I contact patient to return for further evaluation and treatment. I spoke with Kaz, patients , at which he stated that he would bring her to the ER this morning as soon as he can. Dr. Kate aware.
== END 2021-08-17 13:37 | disposition home or self-care (01) ==
LOC: ER 09:03
DX: E87.1 Hypo-osmolality and hyponatremia (principal); Z20.822 Contact with and (suspected) exposure to COVID-19; R50.9 Fever, unspecified; R62.7 Adult failure to thrive; I48.91 Unspecified atrial fibrillation; I25.10 Atherosclerotic heart disease of native coronary artery without angina pectoris; E78.00 Pure hypercholesterolemia, unspecified; I10 Essential (primary) hypertension; J44.9 Chronic obstructive pulmonary disease, unspecified; Z87.01 Personal history of pneumonia (recurrent); Z90.89 Acquired absence of other organs; Z90.49 Acquired absence of other specified parts of digestive tract; Z98.890 Other specified postprocedural states; Z79.82 Long term (current) use of aspirin; Z79.2 Long term (current) use of antibiotics; Z79.899 Other long term (current) drug therapy
CPT/HCPCS: 36415; 71045; 80053; 81003; 83605; 83690; 84145; 85025; 87040; 87077; 87186; 87635; 96360; 99284; C9803; J7030

== ENCOUNTER 2021-08-18 09:08 | Emergency (ER) | payer MEDICARE, OTHER ==
[~2021-08-18] VITALS: Ht 157.5 cm; Wt 45.5 kg
[2021-08-18 09:40] LABS: BASOPHILS # (AUTO) 0.1 X10'3 (0-0.2); BASOPHILS % (AUTO) 0.8 % (0-1); EOSINOPHILS # (AUTO) 1.3 X10'3 (0-0.9); EOSINOPHILS % (AUTO) 17.2 % (0-6); HEMATOCRIT 31.5 % (35.0-45.0); HEMOGLOBIN 10.8 g/dl (12.0-16.0); LYMPHOCYTES # (AUTO) 0.6 X10'3 (1.1-4.8); LYMPHOCYTES % (AUTO) 8.4 % (21-51); MEAN CORPUSCULAR HGB CONC 34.2 g/dL (33.0-36.5); MEAN CORPUSCULAR VOLUME 102.5 FL (78-98); MEAN PLATELET VOLUME 8.3 FL (7.4-10.4); MONOCYTES # (AUTO) 1.1 X10'3 (0-0.9); NEUTROPHILS # (AUTO) 4.5 X10'3 (1.8-7.7); NEUTROPHILS % (AUTO) 59.6 % (42-75); PLATELET COUNT 270 X10'3 (140-440); RED BLOOD COUNT 3.07 X10'6 (4.20-5.60); RED CELL DISTRIBUTION WIDTH 17.8 % (11.5-14.5); WHITE BLOOD COUNT 7.6 X10'3 (4.5-11.0)
[2021-08-18 09:51] LABS: ALANINE AMINOTRANSFERASE 33 U/L (12-78); ALBUMIN/GLOBULIN RATIO 0.8 (1.1-1.5); ALKALINE PHOSPHATASE 46 IU/L (46-116); ANION GAP 9 (8-16); ASPARTATE AMINO TRANSFERASE 28 U/L (10-37); BILIRUBIN,TOTAL 0.8 MG/DL (0.1-1.0); BLOOD UREA NITROGEN 17 MG/DL (7-18); BUN/CREATININE RATIO 11.9 (6.6-38.0); CALCIUM 8.4 MG/DL (8.5-10.1); CHLORIDE 92 MMOL/L (99-107); CREATININE 1.43 MG/DL (0.40-0.90); GLUCOSE 123 MG/DL (70-104); POTASSIUM 4.1 MMOL/L (3.5-5.1); SODIUM 128 MMOL/L (135-145); TOTAL CARBON DIOXIDE 27.3 MMOL/L (24-32); TOTAL PROTEIN 6.7 G/DL (6.4-8.2); eGFR 35 ML/MIN
[2021-08-18 12:17] VITALS: BP 135/67
== END 2021-08-18 12:19 | disposition home or self-care (01) ==
LOC: ER 09:08
DX: R78.81 Bacteremia (principal); E87.1 Hypo-osmolality and hyponatremia; F03.91 Unspecified dementia, unspecified severity, with behavioral disturbance; I48.91 Unspecified atrial fibrillation; I25.10 Atherosclerotic heart disease of native coronary artery without angina pectoris; E78.00 Pure hypercholesterolemia, unspecified; I10 Essential (primary) hypertension; J44.9 Chronic obstructive pulmonary disease, unspecified; Z87.01 Personal history of pneumonia (recurrent); Z90.49 Acquired absence of other specified parts of digestive tract; Z95.0 Presence of cardiac pacemaker; Z79.2 Long term (current) use of antibiotics; Z79.899 Other long term (current) drug therapy; Z79.82 Long term (current) use of aspirin
CPT/HCPCS: 36415; 80053; 83605; 84145; 85025; 87040; 99284

== ENCOUNTER 2021-10-03 08:13 | Emergency (ER) | payer MEDICARE, OTHER ==
[~2021-10-03] VITALS: Ht 157.5 cm; Wt 45.5 kg
[~2021-10-03 08:13] MED LIST changes: +ACYC-1 PO; -ATR0.5NEB IH; -CARSR60C PO; -CIPR-259 PO; -DOCU100C40 PO; +EZET10TA6 PO; +Folic Acid PO; +HYDR200T80 PO; -LOSA50TA64 PO; -PRED5TAB PO
[2021-10-03] MEDS ORDERED: morphine 4 MG/ML inj SYRINge IM ONE (11:20)
[2021-10-03] MEDS ORDERED: ondansetron 4mg rapidly disintigrating tab PO ONE (11:20)
[2021-10-03 12:14] VITALS: BP 211/94
[2021-10-03] MEDS ORDERED: HYDR-3965 PO (12:17)
--- NOTE | 2021-10-03 12:50 | NUR ---
Pt and given and understands discharge instructions. Ambulatory with a cane.
== END 2021-10-03 12:55 | disposition home or self-care (01) ==
LOC: ER 08:14
DX: G89.18 Other acute postprocedural pain (principal); M54.6 Pain in thoracic spine; R11.10 Vomiting, unspecified; F03.91 Unspecified dementia, unspecified severity, with behavioral disturbance; I48.91 Unspecified atrial fibrillation; I25.10 Atherosclerotic heart disease of native coronary artery without angina pectoris; E78.00 Pure hypercholesterolemia, unspecified; I10 Essential (primary) hypertension; J44.9 Chronic obstructive pulmonary disease, unspecified; Z87.448 Personal history of other diseases of urinary system; Z87.01 Personal history of pneumonia (recurrent); Z90.49 Acquired absence of other specified parts of digestive tract; Z95.5 Presence of coronary angioplasty implant and graft; Z79.82 Long term (current) use of aspirin; Z79.899 Other long term (current) drug therapy; Z79.2 Long term (current) use of antibiotics
CPT/HCPCS: 72074; 96372; 99283; J2270